=== PATIENT | male | born 1980 | race Caucasian/White ===

== ENCOUNTER 2023-04-22 06:30 | Day surgery (SDC) | payer MEDICAID ==
[~2023-04-22 06:30] MED LIST: Midazolam 1 MG/ML 2 ML SDV ONE; Propofol 200 MG/20 ML SDV ONE; fentaNYL 50 MCG/ML SDV ONE
[2023-04-22] MEDS ORDERED: Lactated Ringers 1,000 ML IV SCH (07:30)
== END 2023-04-22 09:19 | disposition home or self-care (01) ==
LOC: JP.SDS 06:30
PROVIDERS: ATTEND Student in an Organized Health Care Education/Training Program
DX: Z12.11 Encounter for screening for malignant neoplasm of colon (principal); F41.9 Anxiety disorder, unspecified; F32.A Depression, unspecified; Z80.0 Family history of malignant neoplasm of digestive organs
CPT/HCPCS: 45378; J2250; J2704; J3010; J7120